=== PATIENT | female | born 1965 | race Caucasian/White ===

== ENCOUNTER 2020-10-02 20:52 | Inpatient (IN) | payer OTHER, SELFPAY ==
[~2020-10-02] VITALS: Ht 154.9 cm; Wt 81.0 kg
[~2020-10-02 20:52] MED LIST: FLUC150A PO; IBUP800 PO; LISI10; LISINOPRIL PO; OXYACE5T PO; Penicillin250 MG/5 M PO; Prinivil10 MG PO; SULTRIDS PO
[2020-10-02] MEDS ORDERED: METF500 PO (22:06)
[2020-10-02 22:22] LABS: BASOPHILS ABSOLUTE AUTO 0.01 K/mm3 (0.00-0.23); BASOPHILS PERCENT AUTO 0 % (0-2); EOSINOPHILS PERCENT AUTO 0 % (0-6); Hematocrit 39.6 % (33.0-51.0); Hemoglobin 14.2 g/dL (11.5-16.0); IMMATURE GRAN ABSOLUTE AUTO 0.03 K/mm3 (0.00-0.10); IMMATURE GRAN PERCENT AUTO 0 % (0-1); LYMPHOCYTES ABSOLUTE AUTO 0.67 K/mm3 (0.84-5.20); LYMPHOCYTES PERCENT AUTO 9 % (21-46); MONOCYTES ABSOLUTE AUTO 0.86 K/mm3 (0.16-1.47); MONOCYTES PERCENT AUTO 11 % (4-13); Mean Corpuscular HGB 30.2 pg (26.0-34.0); Mean Corpuscular HGB Conc 35.9 g/dL (31.5-36.5); Mean Corpuscular Volume 84 fL (80-100); Mean Platelet Volume 11.4 fL (9.1-12.4); NEUTROPHILS PERCENT AUTO 80 % (41-73); Platelet Count 121 K/mm3 (150-400); RDW Standard Deviation 43.7 fL (35.1-46.3); White Blood Cell Count 7.87 K/mm3 (4.00-11.30)
[2020-10-02 23:12] LABS: Albumin, Blood 3.6 g/dL (3.4-5.0); Bilirubin, Total 1.1 mg/dL (0.1-1.0); Bun/Creatinine Ratio 23.6 (12.0-20.0); Calcium, Blood 8.8 mg/dL (8.5-10.1); Creatinine, Blood 2.37 mg/dL (0.40-1.00); Globulin, Blood 3.6 g/dL (2.2-4.0); Potassium, Blood 3.9 mmol/L (3.5-5.5); Total Protein, Blood 7.2 g/dL (6.4-8.2)
[2020-10-02 23:38] LABS: Magnesium, Blood 2.2 mg/dL (1.6-2.4)
[2020-10-03 02:02] LABS: Source, Urine Clean Catch
[2020-10-03 02:05] LABS: Bilirubin, Urine Neg (Neg); Blood, Urine 1+ (Neg); Glucose Qualitative, Urine Neg (Neg); Ketones, Urine 1+ (Neg); Leukocyte Esterase, Urine Neg (Neg); Nitrite, Urine Neg (Neg); Protein, Urine Neg (Neg); Specific Gravity, Urine 1.015 (1.003-1.022); Urobilinogen, Urine NORM (Normal)
[2020-10-03 02:07] LABS: Appearance, Urine Clear (Clear); Color, Urine Yellow (P-Yellow)
[2020-10-03 02:11] LABS: Bacteria Few /hpf; Hyaline Casts 0-2 /lpf (0-2); Red Blood Cells, Urine 0-2 /hpf (0-2)
[2020-10-03 02:12] LABS: Squamous Epithelial Cells Few /hpf (Few)
--- NOTE | 2020-10-03 04:13 | NUR ---
SHIFT SUMMARY: PT ADMITTED TO MEDICAL FLOOR FROM [facility]. AAOX4. TEMP 99.2. NSR W/ PVC'S PER TELE RACING DRIVER. IV FLUIDS INFUSING CONTINUOUSLY. PT UP AMBULATING INDEPENDENTLY. DENIES DIZZINESS OR WEAKNESS W/ AMBULATION. OCCASIONAL, NON-PRODUCTIVE COUGHING. LSCTA. 02 94% ON RA. REPORTS ONGOING NAUSEA, NO EMESIS. LAST EPISODE OF DIARRHEA WAS EVENING OF 10/02. PRN ZOFRAN GIVEN FOR NAUSEA W/GOOD RESULTS. NO ACUTE CHANGES OVERNIGHT. WCTM.
[2020-10-03 10:08] LABS: BASOPHILS ABSOLUTE AUTO 0.01 K/mm3 (0.00-0.23); BASOPHILS PERCENT AUTO 0 % (0-2); EOSINOPHILS PERCENT AUTO 0 % (0-6); Hematocrit 32.3 % (33.0-51.0); Hemoglobin 11.7 g/dL (11.5-16.0); IMMATURE GRAN ABSOLUTE AUTO 0.03 K/mm3 (0.00-0.10); IMMATURE GRAN PERCENT AUTO 1 % (0-1); LYMPHOCYTES ABSOLUTE AUTO 0.67 K/mm3 (0.84-5.20); LYMPHOCYTES PERCENT AUTO 12 % (21-46); MONOCYTES ABSOLUTE AUTO 0.58 K/mm3 (0.16-1.47); MONOCYTES PERCENT AUTO 11 % (4-13); Mean Corpuscular HGB Conc 36.2 g/dL (31.5-36.5); Mean Corpuscular Volume 85 fL (80-100); Mean Platelet Volume 11.1 fL (9.1-12.4); NEUTROPHILS PERCENT AUTO 76 % (41-73); Platelet Count 114 K/mm3 (150-400); RDW Coefficient Variation 13.8 % (11.7-14.2); RDW Standard Deviation 43.2 fL (35.1-46.3); Red Blood Cell Count 3.78 M/mm3 (3.80-5.20); White Blood Cell Count 5.39 K/mm3 (4.00-11.30)
[2020-10-03 10:31] LABS: Albumin, Blood 2.8 g/dL (3.4-5.0); Albumin/Globulin Ratio 0.9 (0.8-1.8); Bilirubin, Total 1.2 mg/dL (0.1-1.0); Bun/Creatinine Ratio 24.2 (12.0-20.0); Calcium, Blood 7.8 mg/dL (8.5-10.1); Creatinine, Blood 1.24 mg/dL (0.40-1.00); Total Protein, Blood 5.8 g/dL (6.4-8.2)
--- NOTE | 2020-10-03 16:01 | NUR ---
PATIENT 88% ON RA WITH AFTERNOON VITALS. PLACED ON 2LO2 VIA NC AND SATS ARE NOW 95%.
--- NOTE | 2020-10-03 17:56 | NUR ---
PT IS A/0 X4, ON 2L NC TO MAINTAIN SATS ABOVE 90%. HAS BEEN FEBRILE THROUGOUT THE DAY, HAS BEEN RECEIVING ACETAMINOPHEN Q6H. PT IS ON A CLEAR LQUID DIET ORDERS TO ADVANCE TOLERATED TO REGULAR. PT IS INDEPENDENT IN ROOM W/ COMMODE AT BEDSIDE. NO LOOSE STOOLS SINCE THE AM AND NO NAUSEA. ACHS, 1 COVERAGE NEEDED THIS SHIFT, SKIN IS INTACT, CALM & COOPERATIVE WITH CARE MAKES HER NEEDS KNOWN.
[2020-10-04 05:11] LABS: Albumin, Blood 2.7 g/dL (3.4-5.0); Anion Gap 6 mmol/L (6-16); Blood Urea Nitrogen 14 mg/dL (8-24); Bun/Creatinine Ratio 17.1 (12.0-20.0); CO2, Blood 26 mmol/L (21-32); Calcium, Blood 8.4 mg/dL (8.5-10.1); Chloride, Blood 104 mmol/L (98-108); Creatinine, Blood 0.82 mg/dL (0.40-1.00); Glomerular Filtration Rate >60 (60-); Glucose, Blood 146 mg/dL (70-99); Phosphorus, Blood 1.3 mg/dL (2.5-4.9); Potassium, Blood 3.6 mmol/L (3.5-5.5); Sodium, Blood 136 mmol/L (136-145)
--- NOTE | 2020-10-04 07:16 | NUR ---
SHIFT SUMMARY PT IS A 55 Y/O FEMALE, ADMITTED FOR ACUTE RENAL FAILURE R/T DEHYDRATION FROM N/V/D. PT IS CURRENTLY IN ENHANCED PRECAUTIONS FOR COVID-19. SHE IS A&O X 4, INDEPENDENT IN THE ROOM. TELE SHOWED NSR IN THE 80S. PT IS ON 2L VIA NC, SATTING AT 95%. VITAL SIGNS OTHERWISE STABLE. PT REPORTED A SEVERE HANEY THROUGHOUT THE NIGHT. AFTER INFORMING THE HOSPITALIST DR HERMOSILLO, PT WAS MEDICATED WITH IV FENTANYL. WHEN PT HAD NO PAIN RELIEF, A LIDOCAINE PATCH WAS ORDERED PER PT'S REQUEST "IT MAINLY HURTS IN MY NECK. I THINK ITS FROM DEHYDRATION." PT WAS ALSO MEDICATED THIS AM FOR PAIN AND FEVER WITH PRN TYLENOL. PT ALSO REPORTED INTERMITTENT NAUSEA, AND WAS MEDICATED WITH PRN ZOFRAN AND REGLAN. NO REPORTS OF ACUTE SOB. NO OTHER ACUTE CHANGES IN PT CONDITION NOTED DURING THE NIGHT. REPORT GIVEN TO ONCOMING RN.
--- NOTE | 2020-10-04 15:23 | NUR ---
Patient continues to have an ongoing headache. Medicated once today with some effective results. Afebrile this shift. Cooperative with staff and care provided. Calls appropriately for staff as needed. Call light is within reach.
--- NOTE | 2020-10-05 03:44 | NUR ---
SHIFT SUMMARY A/OX4, IND TO BSC. CURRENTLY ON 2L WITH SATS GREATER THAN 92. VSS, LOW GRADE FEVER NOTED. NO ACUTE CHANGES AT THIS TIME. BED IN LOWEST POSITION WITH CALL LIGHT IN REACH. WILL CONTINUE TO MONITOR AND REPORT TO ONCOMING RN.
[2020-10-05 07:36] LABS: BASOPHILS ABSOLUTE AUTO 0.02 K/mm3 (0.00-0.23); BASOPHILS PERCENT AUTO 0 % (0-2); EOSINOPHILS ABSOLUTE AUTO 0.01 K/mm3 (0.00-0.68); EOSINOPHILS PERCENT AUTO 0 % (0-6); Hemoglobin 9.9 g/dL (11.5-16.0); IMMATURE GRAN ABSOLUTE AUTO 0.07 K/mm3 (0.00-0.10); IMMATURE GRAN PERCENT AUTO 1 % (0-1); LYMPHOCYTES ABSOLUTE AUTO 0.83 K/mm3 (0.84-5.20); LYMPHOCYTES PERCENT AUTO 17 % (21-46); MONOCYTES ABSOLUTE AUTO 0.56 K/mm3 (0.16-1.47); MONOCYTES PERCENT AUTO 11 % (4-13); Mean Corpuscular HGB 30.3 pg (26.0-34.0); Mean Corpuscular HGB Conc 35.4 g/dL (31.5-36.5); Mean Corpuscular Volume 86 fL (80-100); Mean Platelet Volume 10.6 fL (9.1-12.4); NEUTROPHILS ABSOLUTE AUTO 3.52 K/mm3 (1.96-9.15); NEUTROPHILS PERCENT AUTO 70 % (41-73); Platelet Count 149 K/mm3 (150-400); RDW Coefficient Variation 13.4 % (11.7-14.2); RDW Standard Deviation 42.3 fL (35.1-46.3); Red Blood Cell Count 3.27 M/mm3 (3.80-5.20); White Blood Cell Count 5.01 K/mm3 (4.00-11.30)
[2020-10-05 09:01] LABS: Anion Gap 4 mmol/L (6-16); Blood Urea Nitrogen 10 mg/dL (8-24); Bun/Creatinine Ratio 12.3 (12.0-20.0); CO2, Blood 30 mmol/L (21-32); Calcium, Blood 8.7 mg/dL (8.5-10.1); Chloride, Blood 102 mmol/L (98-108); Creatinine, Blood 0.82 mg/dL (0.40-1.00); Glomerular Filtration Rate >60 (60-); Glucose, Blood 125 mg/dL (70-99); Potassium, Blood 3.5 mmol/L (3.5-5.5); Sodium, Blood 136 mmol/L (136-145)
--- NOTE | 2020-10-06 04:36 | NUR ---
SUMMARY PT HAD NOTED INCREASE IN O2 REQUIREMENTS. PT WAS ON 2 LPM VIA NC. PT REPORTED INCREASE IN SOB. PT ASSESSED AND O2 INCREASED TO 4LPM AND PT PLACED ON CONTINOUS SPO2 MONITIRING. PT FOUND LATER UNABLE TO MAINTAIN SPO2 >88. PT PLACED ON HIGH FLOW, 10 LPM. PT WAS ALSO PLACED IN PRONE POSITIONED W/ NOTED IMPROVEMENT. PT O2 TITRATED BACK TO 4LPM AND SPO2 >90%. PT CURRENTLY RESTING IN PRONE POSITION IN NO DISTRESS. CALL LIGHT IN REACH.
[2020-10-06 07:26] LABS: Hematocrit 32.9 % (33.0-51.0); Hemoglobin 11.8 g/dL (11.5-16.0)
--- NOTE | 2020-10-07 05:10 | NUR ---
SUMMARY PT REQUIRED INCREASE IN O2 DURING THE NIGHT. PT PLACED IN PRONE POSITION AND SPO2 IMPROVED. PT THIS AM O2 WAS REDUCED TO 4 LPM. PT REPORTS NIGHT SWEATS, NO FEVERS NOTED. PT CURRENTLY RESTING IN NO DISTRESS. PT CONTINUES TO DESAT AND INCREASE SOB W/ MINIMAL EXERTION. CALL LIGHT IN REACH AND BED ALARM ON.
--- NOTE | 2020-10-07 18:56 | NUR ---
SHIFT SUMMARY PT IS AOX4. PT DENIES PAIN, N/V, SOB. PT IS ON 6 L O2 VIA NC THIS MARGIE. PT DESATS WHEN AMBULATING. PT IS INDEPENDENT IN ROOM. NEW IV PLACED IN LEFT AC DUE TO IV INFILTRATION. TELE IS SINUS BRADYCARDIA 59. ENHANCED ISOLATION PRECAUTIONS MAINTAINED T/O SHIFT. PT HAS HAD GOOD APPETITE. PLAN IS TO CONTINUE WITH O2 TITRATION. PT IS IN ROOM, CALL LIGHT IN REACH, BED IN LOW POSITION.
--- NOTE | 2020-10-08 05:21 | NUR ---
SHIFT SUMMARY PT HAS RESTED WELL FOR MOST OF THE NIGHT, SHE HAS BEEN TITRATED DOWN TO 6L O2 AND HAS OVERALL BEEN TOLERATING WELL. MAINTAINING HER SATS AT 95%. SARA BIOX IN PLACE. PT STILL HAS A PRODUCTIVE COUGH OF CLEAR, THICK SPUTUM. LUNGS DIMINISHED WITH AUSCULTATION AT ASSESSMENT. PT HAS BEEN INDEPENDENT IN THE ROOM AND HAS BEEN ABLE TO TAKE HERSELF TO THE BATHROOM. PT REPORTS STILL FEELING QUITE FATIGUED. PT AWOKE AT AROUND 0344, SOB AND REQUESTING HER O2 TO BE TURNED UP. VITALS OBTAINED AND SATS TAKEN. SATS WERE WNL ON 6L. RT CALLED TO ROOM TO ASSESS, HE STATES THAT HER BREATHING AND SATS WERE FINE BUT THAT SHE SEEMED PANICKED AND SCARED. HER SATS WERE OK ON 6L BUT HE BRIEFLY INCREASED O2 TO 11L FOR COMFORT AND TO HELP RELAX PT. SANIYA PLACED PT BACK ON 6L O2 BEFORE LEAVING ROOM, AND SATS MAINTAINED. AT 0430 PT REPORTS THAT SHE IS FEELING MUCH BETTER AND THAT SHE HAD JUST HAD WOKEN UP FROM A BAD DREAM AND THAT MADE HER FEEL SOB. PT REPORTS THAT SHE DID NOT HAVE ANY OTHER NEEDS. ASSESSEMENT OTHERWISE UNCHANGED. PT CONTINUING STEROIDS AND REMDESIVIR ORDERED DURING DAYSHIFT. TELE IN PLACE, WITH NO CHANGES. BED IN LOWEST POSITION, CALL LIGHT WITHIN REACH.
--- NOTE | 2020-10-08 19:14 | NUR ---
SUMMARY- PT A/O, INDEPENDANT IN THE ROOM. USES CALL LIGHT TO MAKE NEEDS KNOWN. TOLERATING FOOD AND FLUIDS. LUNGS CLEAR, O2 6L NC, CONT PULSE OX 95%. MIN EXERTIONAL DYSPNEA. VSS, USES IS AND FLUTTER. MOTIVATED IN CARE AND IN GOOD SPIRITS. NAPPED T.O THE SHIFT. REPOETED TO KATHERINE ZHANG.
--- NOTE | 2020-10-09 04:16 | NUR ---
SHIFT SUMMARY PT TITRATED DOWN TO 5 L VIA HIGH FLOW NASAL CANNULA. O2 SATS 93-97%. PT HAS DENIED ANY SOB THIS EVENING, BOTH AT REST AND WITH EXERTION. STATING THAT THIS HAS IMPROVED OVER THE LAST FEW DAYS. WEAK OCCASSIONAL MOSTLY NONPRODUCTIVE COUGH. PT SLEPT MOST OF THE NIGHT. NO COMPLAINTS OF PAIN OR DISCOMFORT. PT HAS HAD AN UNEVENTFUL NIGHT. VITAL SIGNS STABLE. NO ACUTE CHANGES THIS SHIFT.
--- NOTE | 2020-10-09 17:46 | NUR ---
SUMMARY- PT A/O, INDEPENDANT IN THE ROOM. ENC IS AND FLUTTER, MOTIVATED IN BREATHING EXERCISES. WAS ABLE TO WEAN OXYGEN DOWN FROM 9 TO 5L. LUNGS CRACKLES MID TO LOWER RIGHT. L BASE DECREASED. TOLERATED FOOD AND FLUIDS. BLOOD SUGARS CONTROLLED WITH SSRI. CXR TODAY SHOWED IMPROVEMENT. WILL REPORT TO KATHERINE ZHANG.
--- NOTE | 2020-10-10 06:00 | NUR ---
SHIFT SUMMARY AOX4. VSS. SPO2 @97% ON 4.5L O2, TITRATED TO 3L & WILL MONITOR PULSE OX, SO FAR TOLERATING. STATES DYSPNIC c ACTIVITY. LUNGS DIM c FINE CRACKLES LLL. PT USING INCENTIVE SPIROMETER & FLUTTER VALVE. DENIES PAIN, N/V. NO BM SINCE 10/03/20, GAVE SCHEDULED MIRALAX PER ORDERS, NO BM THIS SHIFT. CALL LIGHT IN REACH & PT ABLE TO MAKE NEEDS KNOWN. WILL MONITOR.
--- NOTE | 2020-10-10 18:32 | NUR ---
SHIFT SUMMARY PT IN DROPLET ISO FOR BEING COVID +. NEWLY DX DIABETIC. DIETARY HERE TODAY TO DELIVER EDUCATION FOR PT TO READ AND TAKE HOME. PT IS ADJUSTING HABITS TO NEW DIET. DR GUZMAN IN TO SEE PT THIS AM. PT ON 3L O2 VIA NC AT START OF SHIFT. DR GUZMAN REQUESTING PT BE TITRATED DOWN IF POSSIBLE, SO PT CAN RETURN HOME ON RA. PT WAS 96% ON 1L O2 THIS AFTERNOON. PT NOW ON RA AND TOLERATING WELL. UP TO SHOWER HERSELF TODAY. INDEPENDENT TO BTM. PT TO D/C TO HOME TOMORROW. DENIES FURTHER NEEDS CALL LT IN REACH.
--- NOTE | 2020-10-11 06:39 | NUR ---
SHIFT SUMMARY PATIENT ALERT AND ORIENTED. PATIENT HAD NO COMPLAINTS OF PAIN OR SHORTNESS OF BREATH. SLEPT WELL OVERNIGHT AND HAD MINIMAL NEEDS. NO ACUTE ISSUES NOTED. PATIENT REMAINED ON ROOM AIR OVERNIGHT. IV PATENT AND FLUSHED. BED IN LOWEST POSITION WITH WHEELS LOCKED AND ALARM ON. CALL LIGHT WITHIN REACH. REPORT GIVEN TO ONCOMING RN.
[2020-10-11] MEDS ORDERED: Acetaminophen325 M1 PO (07:30)
[2020-10-11] MEDS ORDERED: Flonase 0.05% N16 GM (07:31)
--- NOTE | 2020-10-11 11:30 | NUR ---
DISCHARGE REVIEWD WITH PT. PT VERVALIZED UNDERSTANDING MEDS AND INST. IV REMOVED INTACT. NO TELE. PT PENDING RIDE, PROBABLY TAXI.
--- NOTE | 2020-10-11 11:49 | NUR ---
PT WHEELED OUT DOOR BY JACQUELIN. 2028
--- NOTE | 2020-10-11 14:08 | NUR ---
ADDITIONAL DISCHARGE MEDICATION: THIS RN RECEIVED TELEPHONE ORDER FROM DR. GUZMAN: DECADRON 6 MG PO DAILY X3 DAYS STARTING 10/12/20 DISP: 3 REFILLS: 0 RX CALLED TO [facility]. THIS RN SPOKE WITH PT AT 1400 TO NOTIFY HER OF THE ABOVE. PT VERBALIZED UNDERSTANDING WITH NO FURTHER QUESTIONS.
[2020-10-11] MEDS ORDERED: DECADRON6 M2 PO (14:29)
== END 2020-10-11 11:49 | disposition home or self-care (01) | DRG 177 ==
LOC: ER 20:52 → MEDS 23:43 → ENPENDDIS 10-11 06:39 → MEDS 10-11 11:49
PROVIDERS: Family Medicine; Physician Assistant; ADMIT Internal Medicine
PROC: 8E0ZXY6 Isolation (ICD-10-PCS; principal; 2020-10-04)
PROC: XW033E5 Introduction of Remdesivir Anti-infective into Peripheral Vein, Percutaneous Approach, New Technology Group 5 (ICD-10-PCS; 2020-10-05)
PROC: 5A0935A Assistance with Respiratory Ventilation, Less than 24 Consecutive Hours, High Flow/Velocity Cannula (ICD-10-PCS; 2020-10-05)
DX: U07.1 COVID-19 (principal); J12.82 Pneumonia due to coronavirus disease 2019; J96.01 Acute respiratory failure with hypoxia; E87.1 Hypo-osmolality and hyponatremia; N17.9 Acute kidney failure, unspecified; A08.39 Other viral enteritis; R51.9 Headache, unspecified; I10 Essential (primary) hypertension; E86.0 Dehydration; E86.1 Hypovolemia; E11.9 Type 2 diabetes mellitus without complications; Z88.1 Allergy status to other antibiotic agents; Z88.6 Allergy status to analgesic agent; Z88.8 Allergy status to other drugs, medicaments and biological substances; Z90.49 Acquired absence of other specified parts of digestive tract; Z90.710 Acquired absence of both cervix and uterus; Z79.84 Long term (current) use of oral hypoglycemic drugs; Z79.899 Other long term (current) drug therapy
CPT/HCPCS: 36415; 71045; 76770; 80048; 80053; 80069; 81001; 82947; 83735; 83880; 85014; 85018; 85025; 87040; 94667; 94762; 96361; 96372; 96374; 96375; 96376; 97110; 97161; 97530; 99285-25; A9270; G0378; J1650; J2405; J2765; J3010; J7030

== ENCOUNTER → 2021-03-21 | Outpatient (CLI) | payer OTHER ==
[~2021-03-21] MED LIST changes: +Acetaminophen325 M1 PO; +DECADRON6 M2 PO; +Flonase 0.05% N16 GM; +METF500 PO
[2021-03-24 03:11] LABS: CHLAMYDIA TRACHOMATIS, NAA Negative (Negative)
== END ==
LOC: LAB SHORT 19:34 → LAB 19:34
PROVIDERS: Nurse Practitioner
DX: Z20.2 Contact with and (suspected) exposure to infections with a predominantly sexual mode of transmission (principal); A56.8 Sexually transmitted chlamydial infection of other sites
CPT/HCPCS: 87491; 87591

== ENCOUNTER → 2021-07-25 | Outpatient (CLI) | payer OTHER ==
[2021-07-25 15:49] LABS: Candida species (DNA Probe) Negative (NEGATIVE); G. vaginalis (DNA Probe) Positive (NEGATIVE); T. vaginalis (DNA Probe) Negative (NEGATIVE)
== END ==
LOC: LAB SHORT 13:00
PROVIDERS: Nurse Practitioner Family
DX: N76.0 Acute vaginitis (principal)
CPT/HCPCS: 87480; 87510; 87660

== ENCOUNTER → 2022-01-14 | Outpatient (CLI) | payer OTHER | END | disposition home or self-care (01) | LOC: LAB SHORT 09:30 → LAB 09:30 | DX: N76.0 Acute vaginitis (principal) | CPT/HCPCS: 87070; 87147; 87205 ==

== ENCOUNTER → 2022-12-09 | Outpatient (CLI) | payer BC ==
[2022-12-09 20:50] LABS: Candida species (DNA Probe) Negative (NEGATIVE); G. vaginalis (DNA Probe) Negative (NEGATIVE); T. vaginalis (DNA Probe) Negative (NEGATIVE)
[2022-12-12 03:11] LABS: CHLAMYDIA TRACHOMATIS, NAA Negative (Negative)
== END | disposition home or self-care (01) ==
LOC: LAB SHORT 17:45 → LAB 17:45
PROVIDERS: Physician Assistant
DX: N34.2 Other urethritis (principal)
CPT/HCPCS: 87480; 87491; 87510; 87591; 87660

== ENCOUNTER → 2023-04-07 | Outpatient (CLI) | payer BC | LOC: LAB 09:00 → LAB SHORT 09:00 | DX: B71.9 Cestode infection, unspecified (principal) | CPT/HCPCS: 87177; 87209 ==

== ENCOUNTER → 2024-01-26 | Outpatient (CLI) | payer BC ==
[2024-01-27 12:59] LABS: Candida Group, PCR NOT DETECTED (NOT DETECT); Candida glabrata-krusei, PCR NOT DETECTED (NOT DETECT)
[2024-01-27 13:58] LABS: Bacterial Vaginosis PCR Positive (NEGATIVE)
== END ==
LOC: LAB SHORT 18:50
PROVIDERS: Physician Assistant
DX: N76.0 Acute vaginitis (principal); R30.0 Dysuria
CPT/HCPCS: 87481; 87661; 87801

== ENCOUNTER → 2024-05-04 | Outpatient (CLI) | payer BC | LOC: LAB SHORT 08:06 → LAB 08:06 | DX: B35.1 Tinea unguium (principal); L60.2 Onychogryphosis | CPT/HCPCS: 88305; 88312 ==

== ENCOUNTER → 2025-06-01 | Outpatient (CLI) | payer BC ==
[2025-06-02 23:09] LABS: CALPROTECTIN,FECAL 7 ug/g (<=49)
[2025-06-03 11:42] LABS: GIARDIA ANTIGEN BY EIA Negative (Negative)
[2025-06-03 11:45] LABS: CRYPTOSPORIDIUM ANTIGEN BY EIA Negative (Negative)
== END | disposition home or self-care (01) ==
LOC: LAB SHORT 15:15 → LAB 15:15 → LAB FUT 01-31 07:25
PROVIDERS: Naturopath
DX: R19.7 Diarrhea, unspecified (principal)
CPT/HCPCS: 83993; 87015; 87045; 87046; 87205; 87328; 87329; 87899